=== PATIENT | female | born 1995 | race Caucasian/White ===

== ENCOUNTER 2021-09-03 17:12 | Emergency (ER) | payer MEDICAID ==
[~2021-09-03] VITALS: Ht 172.7 cm; Wt 75.0 kg
[2021-09-03 20:40] LABS: BASOPHILS % 1.1 % (0.0-2.0); EOSINOPHILS % 1.1 % (0.0-5.0); HEMOGLOBIN. 11.3 g/dL (12.0-16.0); LYMPHOCYTES % 47.1 % (20.0-50.0); MEAN CORPUSCULAR HEMOGLOBIN 25.7 pg (28.0-32.0); MEAN CORPUSCULAR VOLUME 79.4 fL (81.0-99.0); MEAN PLATELET VOLUME 8.3 fl (7.4-10.4); MONOCYTES % 11.1 % (2.0-8.0); NEUTROPHILS % 39.6 % (40.0-76.0); PLATELET 346 x1000/uL (130-400); RED BLOOD CELL COUNT 4.41 mill/uL (4.2-5.4); RED CELL DISTRIBUTION WIDTH 15.6 % (11.6-14.6)
[2021-09-03 20:47] LABS: CHLORIDE 106 mEq/L (98-107)
[2021-09-03 20:53] LABS: CLARITY URINE CLEAR (CLEAR); COLOR URINE YELLOW (YELLOW); KETONES URINE NEGATIVE (NEGATIVE); LEUKOCYTE ESTERASE URINE NEGATIVE (NEGATIVE); NITRITE URINE NEGATIVE (NEGATIVE); OCCULT BLOOD URINE NEGATIVE (NEGATIVE); PROTEIN URINE NEGATIVE (NEGATIVE); SPECIFIC GRAVITY URINE 1.007 (1.005-1.030); UROBILINOGEN URINE 0.2 E.U./dL (0.2-1.0)
[2021-09-03 20:58] LABS: B-HCG QUANTITATIVE < 1 mIU/mL (<3)
[2021-09-03] MEDS ORDERED: ACETAMINOPHEN 325MG TABLET PO ONE (21:45)
[2021-09-03 21:57] VITALS: BP 112/85
== END 2021-09-03 21:57 | disposition home or self-care (01) ==
LOC: ER 17:12
DX: R10.2 Pelvic and perineal pain (principal)
CPT/HCPCS: 36415; 80053; 81003; 81025; 84702; 85025; 99283